=== PATIENT | female | born 1965 | race Caucasian/White ===

== ENCOUNTER 2018-09-16 10:50 | Outpatient (CLI) | payer OTHER ==
[2018-09-16 11:12] LABS: BASOPHILS % 1.1 (0.0-1.5); EOSINOPHILS % 0.9 % (0.0-6.8); NEUTROPHILS # 13.4 # k/uL (1.4-7.7)
[2018-09-16] MEDS ORDERED: 0.9 % SODIUM CHLORIDE 1,000 ML IV ONE ×2 (11:16→12:46)
[2018-09-16 11:29] LABS: eGFR (Non-African) > 60
== END 2018-09-16 10:53 ==
LOC: INF 10:50
PROVIDERS: ATTEND Nurse Practitioner Family
DX: R19.7 Diarrhea, unspecified (principal); E86.0 Dehydration
CPT/HCPCS: 36415; 80053; 83690; 85025; 96360; 96361; J7030; S1016

== ENCOUNTER 2019-02-07 18:29 | Emergency (ER) | payer OTHER ==
[2019-02-07] MEDS ORDERED: KETOROLAC TROMETHAMINE 60 MG/2 ML VIAL IM ONE (18:54)
[2019-02-07] MEDS ORDERED: diphenhydrAMINE HCL 50 MG/ML VIAL IM ONE (18:55)
[2019-02-07] MEDS ORDERED: PROMETHAZINE HCL 25 MG/ML VIAL IM ONE (18:55)
[2019-02-07 19:41] VITALS: BP 122/74
--- NOTE | 2019-02-07 20:18 | ED Physician Documentation ---
Headache - HISTORIAN Historian: patient - HPI Stated Complaint: Migraine, N/V Chief Complaint: Headache Onset: hours (0700.) Exposure To: none Severity: severe Quality: pain Exacerbated By: light, noise, movement, position Further Comments: yes (53 year old female patient presents with global migraine since this morning at 0700, patient used her imitrex injection at home with no relief. Reports vomiting x2, photophobia.) - ROS NEURO/PSYCH: denies: confusion, anxiety, depression, fainting, other EYES/ENT: denies: sore throat, difficulty swallowing, sinus pain, drainage, other CVS/RESP: none GI/: denies: abdominal pain, diarrhea, problems urinating, incontinence, other MS/SKIN/LYMPH: muscle aches, back pain, rash, skin lesions, swollen glands, other all systems neg except as marked: Yes - PAST HX Medical History: diabetes, hypertension, migraines, other (HLD, hypothyroidism) Allergies/Adverse Reactions: Allergies Allergy/AdvReac Type Severity Reaction Status Date / Time bupropion HCl Allergy Unknown Hives Verified 02/07/19 19:04 ibuprofen Allergy Unknown Verified 02/07/19 19:04 meperidine [From Demerol] Allergy Verified 02/07/19 19:04 Home Medications: Ambulatory Orders Medication Instructions Recorded Lisinopril [Prinivil] 5 mg PO DAILY u2 10/07/12 Zolpidem Tartrate [Ambien] 10 mg PO HS u2 10/07/12 Dulaglutide [Trulicity] 0.75 mg SQ WEEKLY AT 0600 02/07/19 Metformin HCl ER [Glucophage XR] 1,000 mg PO BID 02/07/19 - SOCIAL HX Smoking History: non-smoker - Family HX Family History: denies: none - VITAL SIGNS Vital Signs: Vital Signs Temp Pulse Resp BP Pulse Ox 98.4 F 74 16 122/74 99 02/07/19 19:39 02/07/19 19:39 02/07/19 19:39 02/07/19 19:39 02/07/19 19:39 - REVIEWED ASSESSMENTS Nursing Assessment Reviewed: Yes Vitals Reviewed: Yes Progress - Progress Progress: Patient refused IV, requested IM injections. Medicated with benadryl, toradol and promethazine IM. ED Results Lab/Radiology - Orders Orders: ED Orders Category Date Time Status Ketorolac Tromethamine [Toradol] Med 02/07/19 18:54 Discontinued 60 mg IM NOW ONE Promethazine HCl [Phenergan] Med 02/07/19 18:55 Discontinued 25 mg IM NOW ONE diphenhydrAMINE HCL [Benadryl] Med 02/07/19 18:55 Discontinued 25 mg IM NOW ONE Headache Physical Exam - EXAM General Appearance: moderate distress, other (photophobia) Neck: normal inspection Respiratory: no resp distress, chest non-tender, breath sounds normal CVS: reg. rate & rhythm, heart sounds nml Skin: color nml, no rash, warm, nml palp., dry - NEURO/PSYCH Higher Functions: alert, oriented x3, nml speech, mood/affect nml Cranial: nml as tested, no evidence of acute CVA Cerebellar: nml as tested, nml gait Sensorimotor: motor nml, sensation nml Discharge Clincal Impression: Migraine Qualifiers: Migraine type: without aura Status migrainosus presence: without status migrainosus Intractability: not intractable Qualified Code(s): G43.009 - Migraine without aura, not intractable, without status migrainosus Referrals: Rita Tony MD [Primary Care Provider] - 2 Days Condition: Stable Disposition: 01 HOME, SELF-CARE Decision to Admit: NO Decision Time: 19:25
== END 2019-02-07 19:39 | disposition home or self-care (01) ==
LOC: ED 18:29
DX: G43.909 Migraine, unspecified, not intractable, without status migrainosus (principal)
CPT/HCPCS: 96372; 99283; 99284; J1200; J1885; J2550